=== PATIENT | female | born 1990 | race Caucasian/White ===

== ENCOUNTER → 2017-09-26 | Outpatient (CLI) | payer OTHER ==
[~2017-09-26] MED LIST: ANTIBIOTIC; Advair Hfa 230-12 GM; CEPH500 PO; IBUP200 PO; LORA10 PO; Portia1 EACH; RXCLIN PO; SULTRIDS PO; SULTRISS PO; Ventolin Soln3 ML INH; Ventolin5 MG/1 ML; Verotin-Gr Cap1 EACH
== END | disposition home or self-care (01) ==
LOC: LAB SHORT 13:41 → LAB EV 13:41
DX: J02.9 Acute pharyngitis, unspecified (principal)
CPT/HCPCS: 87070

== ENCOUNTER → 2019-06-22 | Outpatient (CLI) | payer OTHER | LOC: LAB SHORT 10:37 → LAB EV 10:37 | DX: J02.9 Acute pharyngitis, unspecified (principal) | CPT/HCPCS: 87081; 87147 ==

== ENCOUNTER 2022-12-19 21:51 | Emergency (ER) | payer OTHER ==
[~2022-12-19] VITALS: Ht 154.9 cm; Wt 82.1 kg
[2022-12-19 22:06] VITALS: BP 118/80
== END 2022-12-19 22:15 | disposition home or self-care (01) ==
LOC: ER 21:51
DX: U07.1 COVID-19 (principal); F41.9 Anxiety disorder, unspecified; Z79.51 Long term (current) use of inhaled steroids; Z79.899 Other long term (current) drug therapy
CPT/HCPCS: 99283

== ENCOUNTER 2024-04-14 09:48 | Day surgery (SDC) | payer OTHER ==
[~2024-04-14] VITALS: Ht 157.5 cm; Wt 118.7 kg
[2024-04-14] VITALS (14 sets, daily range): BP systolic 107–155; BP diastolic 46–78
[~2024-04-14 09:48] MED LIST changes: +ADVAIR HFA 230-28 GM; +ALBU90OI INH; +ALLEGRA ALLERG180 MG PO; -Advair Hfa 230-12 GM; +CeFAZolin Sodium 2,000 MG VIAL ONE; +CeFAZolin Sodium 2,000 MG in NS 100 ML IV SCH; +Dexamethasone Sod Phos 10 MG/ML 1ML VIAL ONE; +FentaNYL Citrate 50 MCG/ML 5 ML Injection ONE; +IRON; +Ketorolac Tromethamine 30mg Vial ONE; +Lactated Ringer's 1,000 ML IV SCH; +Lidocaine HCl 2% 20 ML MDV ONE; +Ondansetron HCl 2 MG / ML 2ML Vial ONE; +Pepcid20 MG PO; +Prozac20 MG PO; +Rocuronium Bromide 10 MG/ML 5ML Injection IV ONE; +SPIR50 PO; +Sugammadex Sodium 200 MG/2ML SDV (100 MG/ML) ONE; -Ventolin5 MG/1 ML; +propofoL 20 ML IV ONE
--- NOTE | 2024-04-14 10:21 | NUR ---
Ambulatory in Day Surgery History, Chart, Medications and Allergies reviewed before start of procedure. Pre-Op teaching done. Pt verbalizes understanding. Patient States Post-Procedure ride home has been arranged.
[2024-04-14] MEDS ORDERED: Midazolam HCl 1MG / ML 2ML Vial ONE (10:44)
[2024-04-14] MEDS ORDERED: Mometasone/Formoterol MDI 200/5 mcg 13 GM INH SCH (10:50)
[2024-04-14] MEDS ORDERED: Albuterol HFA200 ACT/6.7 GM INH INH PRN (10:50)
[2024-04-14] MEDS ORDERED: Bupivacaine 0.5% HCl 5 MG/ML 30MLVIAL ONE (11:04)
[2024-04-14] MEDS ORDERED: Albuterol HFA200 ACT/6.7 GM INH ONE (11:33)
[2024-04-14] MEDS ORDERED: Rocuronium Bromide 10 MG/ML 5ML Injection IV ONE (11:33)
--- NOTE | 2024-04-14 11:44 | NUR ---
04/14/24 1144 Bebe Núñez 3G ANCEF GIVEN BY ANESTHESIA AT 1119
[2024-04-14] MEDS ORDERED: FentaNYL Citrate 50 MCG/ML 5 ML Injection ONE (12:24)
[2024-04-14] MEDS ORDERED: Ondansetron 4 MG TAB PO PRN (14:30)
[2024-04-14] MEDS ORDERED: Simethicone 80 MG Chew PO PRN (14:30)
[2024-04-14] MEDS ORDERED: Naloxone HCl 0.4MG / ML 1ML Vial IV PRN (14:30)
[2024-04-14] MEDS ORDERED: Ondansetron HCl 2 MG / ML 2ML Vial IV PRN (14:30)
[2024-04-14] MEDS ORDERED: FLU VACC TS2024-25(6MOS UP)/PF 45 MCG/0.5 ML SYRINGE IM SCH (14:35)
[2024-04-14] MEDS ORDERED: OxyCODONE 5 mg/Acetamin 325 mg TABLET PO PRN (14:35)
[2024-04-14] MEDS ORDERED: Lactated Ringer's 1,000 ML IV SCH (14:35)
[2024-04-14] MEDS ORDERED: HYDROmorphone HCl/Pf 1MG SYR IV PRN (14:35)
[2024-04-14] MEDS ORDERED: Promethazine HCl 25 MG Tab PO PRN (14:35)
[2024-04-14] MEDS ORDERED: Promethazine HCl 12.5 MG Supp PR PRN (14:35)
[2024-04-14] MEDS ORDERED: Ketorolac Tromethamine 30mg Vial IV PRN (14:45)
[2024-04-14] MEDS ORDERED: HYDROmorphone HCl/Pf 1MG SYR ONE (15:02)
--- NOTE | 2024-04-14 17:31 | NUR ---
SUMMARY NO ACUTE CHANGES SINCE ARRIVING TO UNIT FROM PACU. UPON ARRIVAL TO UNIT, PT AMBULATED TO RESTROOM AND VOIDED SCANT AMOUNT. AMBULATED BACK TO BED. MEDICAZTED PER ORDERS FOR NAUSEA AND PAIN. IV FLUIDS INFUSING PER ORDERS. CALL LIGHT IN REACH.
[2024-04-14] MEDS ORDERED: CeFAZolin Sodium 2,000 MG in NS 100 ML IV SCH (19:20)
[2024-04-15 00:01] VITALS: BP 113/62
[2024-04-15 03:52] LABS: BASOPHILS ABSOLUTE AUTO 0.03 K/mm3 (0.00-0.23); BASOPHILS PERCENT AUTO 0 % (0-2); EOSINOPHILS PERCENT AUTO 0 % (0-6); Hematocrit 35.5 % (33.0-51.0); Hemoglobin 11.4 g/dL (11.5-16.0); IMMATURE GRAN ABSOLUTE AUTO 0.14 K/mm3 (0.00-0.10); IMMATURE GRAN PERCENT AUTO 1 % (0-1); LYMPHOCYTES ABSOLUTE AUTO 1.31 K/mm3 (0.84-5.20); LYMPHOCYTES PERCENT AUTO 9 % (21-46); MONOCYTES ABSOLUTE AUTO 0.78 K/mm3 (0.16-1.47); MONOCYTES PERCENT AUTO 5 % (4-13); Mean Corpuscular HGB 27.1 pg (26.0-34.0); Mean Corpuscular HGB Conc 32.1 g/dL (31.5-36.5); Mean Corpuscular Volume 85 fL (80-100); NEUTROPHILS ABSOLUTE AUTO 12.89 K/mm3 (1.96-9.15); NEUTROPHILS PERCENT AUTO 85 % (41-73); Platelet Count 281 K/mm3 (150-400); RDW Coefficient Variation 14.9 % (11.7-14.2); RDW Standard Deviation 45.4 fL (35.1-46.3); White Blood Cell Count 15.15 K/mm3 (4.00-11.30)
--- NOTE | 2024-04-15 04:33 | NUR ---
SHIFT SUMMARY FILIPPO WAS ALERT AND FULLY ORIENTED ON ASSESMENT. PAIN WELL CONTROLLED AT THIS TIME. PT HAVING FREQUENT LARGE VOIDS. PAIN WELL CONTROLLED AT THIS TIME. DENIES N/V, AMBULATING WELL W/ SBA. PT REPORTS SCANT VAGINAL BLEEDING, URINE SLIGHTLY PINK TINGED. SPOUSE AT BEDSIDE. NO ACUTE EVENTS. PT DID REPORT BECOMING LIGHT HEADED WITH AMBULATION LATER INTO SHIFT. AM LABS PENDING
[2024-04-15 07:42] VITALS: BP 123/72
[2024-04-15] MEDS ORDERED: Famotidine 20 MG Tab PO SCH (09:00)
[2024-04-15] MEDS ORDERED: Spironolactone 50 MG Tab PO SCH (09:00)
[2024-04-15] MEDS ORDERED: Loratadine 10 MG Tab PO SCH (09:00)
[2024-04-15] MEDS ORDERED: FLUoxetine HCL 20 MG CAP PO SCH (09:00)
[2024-04-15] MEDS ORDERED: Percocet 5-3251 EACH PO (11:56)
[2024-04-15] MEDS ORDERED: PROM25 PO (11:57)
[2024-04-15] MEDS ORDERED: SIME80CH PO (11:57)
--- NOTE | 2024-04-15 12:13 | NUR ---
WONDERMIRTHA IN TO SEE PT. PT SITTING IN RECLINER, EATING LUNCH.
[2024-04-15 14:19] VITALS: BP 150/103
--- NOTE | 2024-04-15 14:27 | NUR ---
discharging PT'S FAMILY IN ROOM, PT READY TO DC. PAIN CONTROLLED WITH PO PAIN MEDS, TOLERATING DIET AND VOIDING WITHOUT DIFFICULTY. REVIEWED DC INSTRUCTIONS W/PT; VERBALIZED UNDERSTANDING. IV DC'D. PT GETTING DRESSED AT THIS TIME.
--- NOTE | 2024-04-15 14:33 | NUR ---
DISCHARGED PT LEFT UNIT IN WC W/POSSESSIONS AND DC PAPERWORK IN HAND, ACCOMPANIED BY SO AND DAUGHTER TO RIDE OUTSIDE.
== END 2024-04-15 14:35 | disposition home or self-care (01) ==
LOC: ORSCMMR 09:48 → ORD 11:45 → SURS 15:17 → ORSCMMR 04-15 14:35
PROVIDERS: Obstetrics & Gynecology
PROC: 0UT0FZZ Resection of Right Ovary, Via Natural or Artificial Opening With Percutaneous Endoscopic Assistance (ICD-10-PCS; principal; 2024-04-14 11:45)
PROC: 0UT9FZZ Resection of Uterus, Via Natural or Artificial Opening With Percutaneous Endoscopic Assistance (ICD-10-PCS; principal; 2024-04-14 11:45)
DX: N92.1 Excessive and frequent menstruation with irregular cycle (principal); D50.0 Iron deficiency anemia secondary to blood loss (chronic); N94.6 Dysmenorrhea, unspecified; N83.11 Corpus luteum cyst of right ovary; N80.353 Endometriosis of bilateral pelvic sidewall, unspecified depth; E28.2 Polycystic ovarian syndrome; J45.909 Unspecified asthma, uncomplicated; K21.9 Gastro-esophageal reflux disease without esophagitis; Z79.899 Other long term (current) drug therapy; F41.8 Other specified anxiety disorders; E66.01 Morbid (severe) obesity due to excess calories; Z68.42 Body mass index [BMI] 45.0-49.9, adult
CPT/HCPCS: 36415; 85025; 86850; 86900; 86901; 88108; 88305; 88307; 94640; 94664; 94762; A9270; J0690; J1100; J1171; J1885; J2250; J2405; J2704; J3010; J7120